=== PATIENT | female | born 1975 | race African-American/Black ===

== ENCOUNTER 2021-02-17 22:15 | Emergency (ER) | payer OTHER ==
[2021-02-17 22:21] VITALS: BP 123/82; PULSE 84; TEMP 99.1; BMI 33.3
== END 2021-02-17 23:03 | disposition home or self-care (01) ==
LOC: JER 22:15
DX: B34.9 Viral infection, unspecified (principal)
CPT/HCPCS: 99283-25; C9803; U0003; U0005